=== PATIENT | male | born 1960 | race Caucasian/White ===

== ENCOUNTER 2022-05-06 02:12 | Emergency (ER) | payer MEDICARE ==
[~2022-05-06] VITALS: Ht 177.8 cm; Wt 132.4 kg
[2022-05-06] MEDS ORDERED: AMLO25TA PO (02:42)
[2022-05-06] MEDS ORDERED: RAMI1CAP22 PO (02:42)
[2022-05-06] MEDS ORDERED: LANTINJ4 SC (02:42)
[2022-05-06] MEDS ORDERED: METO50TA7 PO (02:42)
[2022-05-06] MEDS ORDERED: FAMO40TA3 PO (02:42)
[2022-05-06] MEDS ORDERED: PLAV1TAB2 PO (02:42)
[2022-05-06] MEDS ORDERED: PROT1TAB2 PO (02:42)
[2022-05-06] MEDS ORDERED: VICT18IN SC (02:42)
[2022-05-06] MEDS ORDERED: LEXA1TAB2 PO (02:42)
[2022-05-06] MEDS ORDERED: GLIP10TA PO (02:42)
[2022-05-06] MEDS ORDERED: ATOR40TA75 PO (02:42)
[2022-05-06] MEDS ORDERED: METF10004 PO (02:42)
[2022-05-06 03:43] LABS: BASO # 0.1 10^3/uL (0.0-0.2); BASO % 0.6 % (0.0-1.0); EOS # 0.2 10^3/uL (0.0-0.5); HEMATOCRIT 39.3 % (42.0-52.0); HEMOGLOBIN 12.9 g/dl (13.5-17.5); LYMPH # 3.2 10^3/uL (1.5-5.0); LYMPH % 29.8 % (24.0-44.0); MEAN CORPUSCULAR HEMOGLOBIN 29.1 pg (27.0-33.0); MEAN CORPUSCULAR HGB CONC 32.8 g/dl (32.0-36.5); MEAN CORPUSCULAR VOLUME 88.5 fl (80.0-96.0); MONO # 0.8 10^3/uL (0.0-0.8); NEUTROPHILS # 6.5 10^3/uL (1.5-8.5); NEUTROPHILS % 60.1 % (36.0-66.0); PLATELET COUNT, AUTOMATED 299 10^3/uL (150-450); RED BLOOD COUNT 4.44 10^6/uL (4.30-6.10); WHITE BLOOD COUNT 10.9 10^3/uL (4.0-10.0)
[2022-05-06 04:09] LABS: BLOOD UREA NITROGEN 21 MG/DL (7-18); CALCIUM LEVEL 8.8 MG/DL (8.8-10.2); CARBON DIOXIDE LEVEL 23 MEQ/L (21-32); CHLORIDE LEVEL 108 MEQ/L (98-107); CK-MB VALUE MASS < 1.0 NG/ML (<3.6); CPK CREATINE PHOSPHOKINASE 58 U/L (39-308); CREATININE FOR GFR 1.09 MG/DL (0.70-1.30); GLOMERULAR FILTRATION RATE > 60.0 (>49); GLUCOSE, FASTING 162 MG/DL (70-100); MB/CK RELATIVE INDEX 1.72 (< OR =4); NT-PRO BNP 88 PG/ML (<125); POTASSIUM SERUM 4.1 MEQ/L (3.5-5.1); SODIUM LEVEL 137 MEQ/L (136-145)
[2022-05-06] MEDS ORDERED: ACETAMINOPHEN 500 MG TAB PO ONE (08:45)
[2022-05-06] MEDS ORDERED: traMADol 50 MG TAB PO ONE (08:45)
[2022-05-06] MEDS ORDERED: TRAM50TA2 PO (08:51)
[2022-05-06 09:07] VITALS: BP 118/67
== END 2022-05-06 09:09 | disposition home or self-care (01) ==
LOC: M ED 02:12
DX: S80.12XA Contusion of left lower leg, initial encounter (principal); W54.1XXA Struck by dog, initial encounter; I25.2 Old myocardial infarction; E11.9 Type 2 diabetes mellitus without complications; Z88.1 Allergy status to other antibiotic agents; Z88.8 Allergy status to other drugs, medicaments and biological substances; Z91.013 Allergy to seafood

== ENCOUNTER → 2022-06-14 | Outpatient (CLI) | payer MEDICARE ==
[~2022-06-14] MED LIST: AMLO25TA PO; ATOR40TA75 PO; FAMO40TA3 PO; GLIP10TA PO; LANTINJ4 SC; LEXA1TAB2 PO; METF10004 PO; METO50TA7 PO; PLAV1TAB2 PO; PROT1TAB2 PO; RAMI1CAP22 PO; TRAM50TA2 PO; VICT18IN SC
== END ==
LOC: M SOG 09:05
PROVIDERS: ATTEND Orthopaedic Surgery Hand Surgery
DX: M79.662 Pain in left lower leg (principal)